=== PATIENT | female | born 1980 | race Caucasian/White ===

== ENCOUNTER 2016-06-12 20:11 | Emergency (ER) | payer BC ==
[2016-06-12] MEDS ORDERED: OPTIRAY 350 100 ML VIAL HMH IV ONE (20:12)
[2016-06-12] MEDS ORDERED: METOCLOPRAMIDE 10 MG/2 ML VIAL ONE (22:02)
[2016-06-12] MEDS ORDERED: DIPHENHYDRAMINE 50 MG/ML VIAL ONE (22:02)
[2016-06-12] MEDS ORDERED: SODIUM CHLORIDE 0.9% 1,000 ML ONE (22:03)
[2016-06-12] MEDS ORDERED: DICYCLOMINE 10 MG CAP ONE (22:36)
== END 2016-06-12 23:45 | disposition home or self-care (01) ==
LOC: ER 20:11
DX: R11.2 Nausea with vomiting, unspecified (principal); R10.84 Generalized abdominal pain; M06.9 Rheumatoid arthritis, unspecified; M32.9 Systemic lupus erythematosus, unspecified; D68.2 Hereditary deficiency of other clotting factors; Z86.718 Personal history of other venous thrombosis and embolism; Z79.02 Long term (current) use of antithrombotics/antiplatelets; K50.90 Crohn's disease, unspecified, without complications; I49.8 Other specified cardiac arrhythmias; Z85.42 Personal history of malignant neoplasm of other parts of uterus; Z85.43 Personal history of malignant neoplasm of ovary; Z79.899 Other long term (current) drug therapy
CPT/HCPCS: 36415; 74177; 80053; 81003; 82553; 83690; 84439; 84443; 84484; 85025; 93005; 96361; 96374; 96375